=== PATIENT | male | born 1995 | race Two or more races ===

== ENCOUNTER 2025-06-15 21:20 | Emergency (ER) | payer BC, OTHER ==
[~2025-06-15] VITALS: Ht 175.3 cm; Wt 90.9 kg
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
--- NOTE | 2025-06-15 22:47 | DVH ---
CLINICAL INDICATION: injury/pain TECHNIQUE: 3 views XY L FOOT 3 VIEW XRAY Comparison: None FINDINGS: No acute fracture or dislocation. Normal osseous mineralization. No significant degenerative change . Mild dorsal soft tissue swelling of the forefoot. IMPRESSION: 1. No acute osseous finding of the left foot.
[2025-06-15] MEDS ORDERED: IBUP-1456 PO (23:01)
[2025-06-15 23:12] VITALS: BP 147/99; PULSE 79; RESP 19; TEMP 99.1; O2SAT 95
== END 2025-06-15 23:12 | disposition home or self-care (01) ==
LOC: ER 21:20
DX: S90.32XA Contusion of left foot, initial encounter (principal); Z79.899 Other long term (current) drug therapy; W01.0XXA Fall on same level from slipping, tripping and stumbling without subsequent striking against object, initial encounter; Y93.89 Activity, other specified; Y92.89 Other specified places as the place of occurrence of the external cause; Y99.8 Other external cause status
CPT/HCPCS: 73630